=== PATIENT | male | born 1935 | race Caucasian/White ===

== ENCOUNTER 2021-02-28 08:03 | Outpatient (REF) | payer SELFPAY ==
--- NOTE | 2021-02-28 10:27 | MHC.AU.HFU ---
Hearing Instrument Follow-Up- Binaural Date of Visit: 02/28/21 Right Ear: Sole Layer Hand: Phonak Model: Virto B 50-13 Serial Number: [id number] Repair Warranty: 03/05/2021 Loss and Damage Warranty: 03/05/2021 Battery Size: 13 Color: [place] Type of Wax Guard: CeruStop Dispensed By: [facility] Date of Fittin02/07/2018 Left Ear: Sole Layer Hand: Phonak Model: Virto B 50-13 Serial Number: [id number] Repair Warranty: 03/05/2021 Loss and Damage Warranty: 03/05/2021 Battery Size: 13 Color: [place] Type of Wax Guard: CeruStop Dispensed By: [facility] Date of Fittin02/07/2018 Follow-Up Summary: Patient scheduled for hearing aid maintenance. Both aids have cerumen in the receivers and not able to remove all cerumen. Decided to send both aids for repair prior to warranty expiration on 03/05/2021. Recommendations: Recommendations (Other): - Advise audiologic re-evaluation and patient will contact PCP for order. - Schedule appointment when repairs in. Diagnosis Code(s): Primary Diagnosis: H90.3 Bilateral Sensorineural Hearing Loss Services Performed: [place] Non-Quantity Charges: HANC: NonBillable Event Signature: Provider: Ana Laura Lundberg, [facility]
== END 2021-02-28 08:04 | disposition home or self-care (01) ==
LOC: HO.HAP 08:03
PROVIDERS: Visit Provider Internal Medicine
DX: Z13.89 Encounter for screening for other disorder (principal)

== ENCOUNTER 2021-03-21 08:03 | Outpatient (REF) | payer MEDICARE, SELFPAY ==
--- NOTE | 2021-03-21 09:39 | MHC.AU.AHA ---
Adult Audiological Evaluation Date of Visit: 03/21/21 Reason for Appointment: Long-standing history of hearing loss. Patient arrives to determine if there have been any changes in hearing. Previous Hearing Test Results: At this clinic on 01/25/2018- Mild sloping to profound sensorineural hearing loss Ear History: Recent Ear Drainage: None Reported Recent Ear Pain: None Reported Family History of Hearing Loss?: Yes Recent Ear Infections: None Reported Previous Ear Surgery: None Reported Hearing Instrument History- Right Ear: Supervisor Partial Denture Department: Phonak Model: Virto B 50-13 Serial Number: [id number] Battery Size: 13 Repair Warranty: 03/05/2021 Loss and Damage Warranty: 03/05/2021 Dispensed By: [facility] Date of Fittin02/07/2018 Hearing Instrument History- Left Ear: Supervisor Partial Denture Department: Phonak Model: Virto B 50-13 Serial Number: [id number] Battery Size: 13 Warranty: 03/05/2021 Loss and Damage Warranty: 03/05/2021 Dispensed By: [facility] Date of Fittin02/07/2018 Otoscopy: Right Ear: Unremarkable Left Ear: Unremarkable Tympanometry: Tympanometry performed due to: To assess integrity of the middle ear system Right Ear: Normal Middle Ear System (Type A) Left Ear: Normal Middle Ear System (Type A) Hearing Evaluation: Transducer(s) Used: Insert Earphones Method: Conventional Audiometry Stimuli Used: Pure Tones Right Ear: Description of Hearing: Mild to profound sensorineural hearing loss Left Ear: Description of Hearing: Moderate to profound sensorineural hearing loss Speech Recognition Threshold (SRT): Method Used: Recorded Lists Stimuli Used: Spondee Words Right Ear: 45 dBHL Left Ear: 50 dBHL Word Discrimination: Method: Recorded Lists Word Lists Used: W-22 Right Ear: 64% at 85 dBHL Left Ear: 64% at 85 dBHL Most Comfortable Level (MCL): Right Ear: 85 dBHL Left Ear: 85 dBHL Aided Testing: Aided testing performed pre-adjustments to help determine if adjustments were needed. In soundfield, aided word discrimination at 50 dBHL was 80% in quiet and 88% in noise (+10 SNR). Comparison: Compared to most recent evaluation: Minor threshold changes noted since 2018. Recommendations: Audiological re-evaluation in one year. Patient's recently repaired hearing aids were returned to him today. Hearing aid programming was updated with today's results. Patient was pleased with the changes. Diagnosis: Primary Diagnosis: H90.3 Bilateral Sensorineural Hearing Loss Signature: Provider: Ana Laura Foy, CCC-A
== END 2021-03-21 08:04 | disposition home or self-care (01) ==
LOC: HO.SH 08:03
PROVIDERS: Visit Provider Internal Medicine
DX: H90.3 Sensorineural hearing loss, bilateral (principal)
CPT/HCPCS: 92557; 92567

== ENCOUNTER 2022-07-17 12:02 | Outpatient (REF) | payer MEDICARE, SELFPAY | END 2022-07-17 12:03 | disposition home or self-care (01) | LOC: HO.SH 12:02 | PROVIDERS: Visit Provider Internal Medicine | DX: Z01.118 Encounter for examination of ears and hearing with other abnormal findings (principal); H90.3 Sensorineural hearing loss, bilateral | CPT/HCPCS: 92552; 92556; 92567 ==

== ENCOUNTER 2022-07-17 14:58 | Outpatient (REF) | payer SELFPAY | END 2022-07-17 14:59 | disposition home or self-care (01) | LOC: HO.HAP 14:58 | PROVIDERS: Visit Provider Internal Medicine | DX: Z46.1 Encounter for fitting and adjustment of hearing aid (principal) | CPT/HCPCS: 92592 ==